=== PATIENT | female | born 1975 ===

== ENCOUNTER 2024-01-31 10:09 | Outpatient (CLI) | payer OTHER | END 2024-01-31 10:16 | disposition home or self-care (01) | LOC: SONOGRAMA 10:09 | PROVIDERS: ATTEND Specialist | DX: M25.532 Pain in left wrist (principal); M65.4 Radial styloid tenosynovitis [de Quervain] ==

== ENCOUNTER 2024-04-28 08:08 | Outpatient (CLI) | payer OTHER ==
[2024-04-28 08:51] LABS: HEMOGLOBIN 12.8 g/dL (12.0-15.00); MEAN CELL VOLUME 89.3 fL (80.00-100.00); MEAN CORPUSCULAR HEMOGLOBIN 29.3 pg (27.00-32.0); MEAN CORPUSCULAR HGB CONC 32.8 g/dl (32.0-36.0); PLATELET COUNT 322 K/uL (150-450); RED BLOOD COUNT 4.37 M/uL (4.00-6.00); RED CELL DISTRIBUTION WIDTH 14.3 % (11.5-14.5)
[2024-04-28 09:49] LABS: MYCOPLASMA PNEUMONIAE IGM NON REACTIVE (NO REACTIVE)
== END 2024-04-28 08:26 | disposition home or self-care (01) ==
LOC: LAB 08:08
DX: A49.3 Mycoplasma infection, unspecified site (principal); J11.1 Influenza due to unidentified influenza virus with other respiratory manifestations; R07.0 Pain in throat; R51.9 Headache, unspecified

== ENCOUNTER → 2024-05-20 09:59 | Outpatient (CLI) | payer OTHER ==
[2024-05-20 11:27] LABS: HEMOGLOBIN 12.3 g/dL (12.0-15.00); MEAN CELL VOLUME 90.2 fL (80.00-100.00); MEAN CORPUSCULAR HEMOGLOBIN 30.1 pg (27.00-32.0); MEAN CORPUSCULAR HGB CONC 33.4 g/dl (32.0-36.0); PLATELET COUNT 232 K/uL (150-450); RED BLOOD COUNT 4.11 M/uL (4.00-6.00); RED CELL DISTRIBUTION WIDTH 14.7 % (11.5-14.5)
[2024-05-20 12:46] LABS: MYCOPLASMA PNEUMONIAE IGM NON REACTIVE (NO REACTIVE)
== END | disposition home or self-care (01) ==
LOC: LAB 09:59
DX: J11.1 Influenza due to unidentified influenza virus with other respiratory manifestations (principal); A49.3 Mycoplasma infection, unspecified site; R50.9 Fever, unspecified; R05.9 Cough, unspecified

== ENCOUNTER 2024-07-13 09:28 | Outpatient (CLI) | payer OTHER | END 2024-07-13 09:30 | disposition home or self-care (01) | LOC: MAMO-SONO 09:28 | PROVIDERS: ATTEND Obstetrics & Gynecology Gynecology | DX: N63.11 Unspecified lump in the right breast, upper outer quadrant (principal); R59.0 Localized enlarged lymph nodes ==

== ENCOUNTER 2024-10-14 07:20 | Outpatient (CLI) | payer OTHER | END 2024-10-14 07:26 | disposition home or self-care (01) | LOC: SONOGRAMA 07:20 | DX: R10.9 Unspecified abdominal pain (principal) ==

== ENCOUNTER 2025-01-29 07:59 | Outpatient (CLI) | payer OTHER ==
[2025-01-29 09:18] LABS: URINE APPEARANCE Clear; URINE BILIRRUBIN Negative (NEGATIVE); URINE BLOOD Negative; URINE COLOR Yellow; URINE GLUCOSE Negative (NEGATIVE); URINE KETONE Negative (NEGATIVE); URINE LEUKOCYTE Negative; URINE NITRATE Negative; URINE PROTEIN Negative (NEGATIVE); URINE UROBILINOGEN 0.2 E.U./dl
[2025-01-29 09:20] LABS: BASO % 0.4 % (0.1-1.2); EOS # 0.14 (0.04-0.54); EOS % 2.6 % (0.7-7.0); LYMPH # 2.12 (1.18-3.74); LYMPH % 38.9 % (19.3-53.1); MEAN PLATELET VOLUME 11.20 fl (9.4-12.4); MONO # 0.32 (0.24-0.82); MONO % 5.9 % (4.7-12.5); NEUT # 2.84 (1.56-6.13); NEUT % 52.0 % (34.0-71.1); RED CELL DISTRIBUTION WIDTH 14.1 % (11.6-14.4); URINE BACTERIA 125.9 uL (0.0-1933); URINE RBC 3.9 uL (0.0-20.8)
[2025-01-29 09:21] LABS: URINE CAST 0.00 uL (0.0-1.40); URINE EPITHELIAL CELLS 1.0 uL (0.0-38.8); URINE WBC 1.3 uL (0.0-23.2)
[2025-01-29 09:39] LABS: CREATININE URINE RANDOM 51.10 MG/DL (30-125)
[2025-01-29 10:00] LABS: ALT/SGPT 23.0 U/L (12-78); AST/SGOT 12.0 U/L (15-37); BILIRUBIN TOTAL 0.36 mg/dL (0.3-1.2); BUN CREA RATIO 17.0 (7.0-25.0); CHOL HDL RATIO 4.2 (0-5.0); CREATININE SERUM 0.75 mg/dL (0.55-1.02); GFR 81.47; GLOBULINA 3.8 G/DL (2.4-3.5); GLUCOSE FASTING 93.0 mg/dL (65-100); HDL 55.0 mg/dl (40-60); LDL 111.0 mg/dl (0-130); OSMOLALITY SERUM 283.0 MOSM/KG (275-295); TSH 2.07 uIU/mL (0.358-3.74); VLDL 63.0 (0-39)
[2025-01-29 10:50] LABS: VITAMIN D3 25 HYDROXY 25.07 ng/ml (30-120)
[2025-01-30 09:08] LABS: ESTRADIOL SERUM 18.3 pg/mL (.)
== END 2025-01-29 08:18 | disposition home or self-care (01) ==
LOC: LAB 07:59
DX: R53.82 Chronic fatigue, unspecified (principal); E78.5 Hyperlipidemia, unspecified; E55.9 Vitamin D deficiency, unspecified; A64 Unspecified sexually transmitted disease; N95.1 Menopausal and female climacteric states; D50.9 Iron deficiency anemia, unspecified; E11.9 Type 2 diabetes mellitus without complications; Z12.11 Encounter for screening for malignant neoplasm of colon; E78.2 Mixed hyperlipidemia; N18.1 Chronic kidney disease, stage 1; R30.0 Dysuria; R73.01 Impaired fasting glucose; E04.1 Nontoxic single thyroid nodule

== ENCOUNTER 2025-01-29 09:36 | Outpatient (CLI) | payer OTHER | END 2025-01-29 09:40 | disposition home or self-care (01) | LOC: TOM 09:36 | DX: N64.4 Mastodynia (principal); N64.9 Disorder of breast, unspecified; Z12.31 Encounter for screening mammogram for malignant neoplasm of breast; N91.1 Secondary amenorrhea ==